=== PATIENT | female | born 1980 | race Caucasian/White ===

== ENCOUNTER 2018-02-25 11:32 | Emergency (ER) | END 2018-02-25 15:46 | disposition home or self-care (01) ==

== ENCOUNTER 2018-07-01 07:19 | Emergency (ER) | payer OTHER ==
[~2018-07-01] VITALS: Ht 167.6 cm; Wt 76.0 kg
[~2018-07-01 07:19] MED LIST: MECL12.574 PO; METO10TA92 PO
[2018-07-01 07:21] VITALS: Ht 167.6 cm; Wt 76.0 kg
[2018-07-01] MEDS ORDERED: ONDANSETRON 4 MG INJ IV STA (08:38)
[2018-07-01] MEDS ORDERED: morphine 2 MG INJ IV STA (08:38)
[2018-07-01] MEDS ORDERED: IBUP-1542 PO (10:22)
[2018-07-01] MEDS ORDERED: CEPH-443 PO (10:22)
--- NOTE | 2018-07-01 10:26 | ERD ---
ER Documentation Chief Complaint Chief Complaint Complains of abdominal pain that started yesterday HPI 38-year-old female presents with a 2-3-day history of lower abdominal pain which is constant. She has decreased appetite but denies significant nausea no vomiting. Denies fevers, urinary complaints. She denies . Patient denies any previous abdominal conditions, surgeries. She denies any upper abdominal pain. Patient denies any new sexual partners or concern for STDs. ROS All systems reviewed and are negative except as per history of present illness. Medications Home Meds Active Scripts Ibuprofen* (Motrin*) 600 Mg Tab, 600 MG PO Q6, #15 TAB Prov:LAURA CABAN MD 07/01/18 Cephalexin* (Keflex*) 500 Mg Capsule, 500 MG PO QID for 5 Days, CAP Prov:LAURA CABAN MD 07/01/18 Metoclopramide* (Reglan*) 10 Mg Tablet, 10 MG PO BID PRN for NAUSEA AND/OR VOMITING, #10 TAB Prov:CHILO SYED MD 02/25/18 Meclizine Hcl* (Antivert*) 12.5 Mg Tab, 12.5 MG PO Q6H PRN for DIZZINESS, #20 TAB Prov:CHILO SYED MD 02/25/18 Allergies Allergies: Coded Allergies: No Known Allergy (Verified , 07/12/12) PMhx/Soc History of Surgery: No Anesthesia Reaction: No Hx Neurological Disorder: No Hx Respiratory Disorders: No Hx Cardiac Disorders: No Hx Psychiatric Problems: No Hx Miscellaneous Medical Probl: Yes (LIVER INFLAMMATION ) Hx Alcohol Use: No Hx Substance Use: No Hx Tobacco Use: No FmHx Family History: No diabetes, No coronary disease, No other Physical Exam Vitals Vital Signs Date Temp Pulse Resp B/P (MAP) Pulse Ox O2 O2 Flow FiO2 Time Delivery Rate 07/01/18 98.9 64 20 111/54 99 07:21 (73) Physical Exam Const: No acute distress Head: Atraumatic Eyes: Normal Conjunctiva ENT: Normal External Ears, Nose and Mouth. Neck: Full range of motion. No meningismus. Resp: Clear to auscultation bilaterally Cardio: Regular rate and rhythm, no murmurs Abd: Soft, mild tenderness primary in the lower abdomen without focal tenderness at McBurney's point. No Kimble sign. No rebound. There is diffuse mildly on the right and left suprapubic area.. Non distended. Normal bowel sounds Skin: No petechiae or rashes Back: No midline or flank tenderness Ext: No cyanosis, or edema Neur: Awake and alert Psych: Normal Mood and Affect Result Diagram: 07/01/18 0856 07/01/18 0856 Results 24 hrs Laboratory Tests Test 07/01/18 08:56 07/01/18 09:47 White Blood Count 10.7 10^3/ul Red Blood Count 4.73 10^6/ul Hemoglobin 14.2 g/dl Hematocrit 41.6 % Mean Corpuscular Volume 87.9 fl Mean Corpuscular Hemoglobin 30.0 pg Mean Corpuscular Hemoglobin Concent 34.1 g/dl Red Cell Distribution Width 12.5 % Platelet Count 280 10^3/UL Mean Platelet Volume 11.1 fl Immature Granulocytes % 0.900 % Neutrophils % 69.3 % Lymphocytes % 21.3 % Monocytes % 4.4 % Eosinophils % 3.6 % Basophils % 0.5 % Nucleated Red Blood Cells % 0.0 /100WBC Immature Granulocytes # 0.100 10^3/ul Neutrophils # 7.4 10^3/ul Lymphocytes # 2.3 10^3/ul Monocytes # 0.5 10^3/ul Eosinophils # 0.4 10^3/ul Basophils # 0.1 10^3/ul Nucleated Red Blood Cells # 0.0 10^3/ul Urine Color YELLOW Urine Clarity SLIGHTLY CLOUDY Urine pH 8.0 Urine Specific [place] 1.011 Urine Ketones NEGATIVE mg/dL Urine Nitrite NEGATIVE mg/dL Urine Bilirubin NEGATIVE mg/dL Urine Urobilinogen NEGATIVE mg/dL Urine Leukocyte Esterase TRACE Didier/ul Urine Microscopic RBC 0 /HPF Urine Microscopic WBC 6 /HPF Urine Squamous Epithelial Cells FEW /HPF Urine Amorphous Crystals FEW /HPF Urine Bacteria FEW /HPF Urine Hemoglobin NEGATIVE mg/dL Urine Glucose NEGATIVE mg/dL Urine Total Protein NEGATIVE mg/dl Sodium Level 140 mmol/L Potassium Level 4.3 mmol/L Chloride Level 103 mmol/L Carbon Dioxide Level 30 mmol/L Anion Gap 7 Blood Urea Nitrogen 12 mg/dl Creatinine 0.61 mg/dl Est Glomerular Filtrat Rate mL/min > 60 mL/min Glucose Level 103 mg/dl Calcium Level 9.4 mg/dl Total Bilirubin 0.4 mg/dl Direct Bilirubin 0.00 mg/dl Indirect Bilirubin 0.4 mg/dl Aspartate Amino Transf (AST/SGOT) 28 IU/L Alanine Aminotransferase (ALT/SGPT) 32 IU/L Alkaline Phosphatase 53 IU/L Total Protein 7.1 g/dl Albumin 4.1 g/dl Globulin 3.00 g/dl Albumin/Globulin Ratio 1.36 Lipase 191 U/L POC Beta HCG, Qualitative NEGATIVE Current Medications Medications Dose Sig/Josiah Start Time Status Last (Trade) Ordered Route PRN Stop Time Admin Dose Reason Admin Morphine 2 mg ONCE STAT 07/01/18 DC 07/01/18 Sulfate IV 08:38 09:00 (morphine) 07/01/18 08:40 Ondansetron 4 mg ONCE STAT 07/01/18 DC 07/01/18 HCl (Zofran IV 08:38 09:00 Inj) 07/01/18 08:40 Cephalexin 500 mg ONCE ONCE 07/01/18 (Keflex) PO 10:30 07/01/18 10:31 Ibuprofen 600 mg ONCE ONCE 07/01/18 (Motrin) PO 10:30 07/01/18 10:31 Procedures/MDM Patient presents with lower abdominal pain of uncertain etiology. Urine shows few white blood cells and trace leukocyte esterase. CBC, CMP, lipase normal. Concerns for diverticulitis, additional emergent cause of abdominal pain. CT abdomen pelvis shows hepatic steatosis otherwise no acute findings. Patient was given Keflex and ibuprofen. Urine sent for gonorrhea chlamydia. Patient will be treated with Keflex, ibuprofen, primary care follow-up and return precautions for findings of UTI. There is no signs of additional emergent causes of abdominal pain currently. Should return for worsening pain, fevers, vomiting, new worsening symptoms with primary care doctor this week. The patient was stable with no new complaints during the ER course. Clinically, there is no current evidence to suggest meningitis, sepsis, acute abdomen, pneumonia, tubo- ovarian abscess, stroke, acute coronary syndrome, pulmonary embolism, aortic dissection or any other emergent condition appearing to require further evaluation or hospitalization. Patient counseled regarding my diagnostic impression and care plan. Prior to discharge all questions answered. Pt agrees with treatment plan and understands strict return precautions. Pt is instructed to follow up with primary care provider within 24-48 hours. Precautionary instructions provided including instructions to return to the ER if not improving or for any worsening or changing symptoms or concerns. Departure Diagnosis: Primary Impression: UTI (urinary tract infection) Urinary tract infection type: acute cystitis Hematuria presence: without hematuria Qualified Codes: N30.00 - Acute cystitis without hematuria Additional Impression: Abdominal pain Abdominal location: lower abdomen, unspecified Qualified Codes: R10.30 - Lower abdominal pain, unspecified Condition: Stable Patient Instructions: Abdominal Pain, Understanding Urinary Tract Infections (UTIs) Additional Instructions: todo examines normal para enfermas peligrosa. solo hay infeccion en [place]. Cheque otro vez con [place] doctor primario en el proximo jones or regresa para mas o nueva simptomas. LAURA CABAN MD Jul 01, 2018 10:26
[2018-07-01] MEDS ORDERED: IBUPROFEN 600 MG TAB PO ONE (10:30)
[2018-07-01] MEDS ORDERED: CEPHALEXIN 500 MG CAP PO ONE (10:30)
[2018-07-01 10:55] VITALS: BP 112/62; PULSE 75; RESP 18
== END 2018-07-01 10:56 | disposition home or self-care (01) ==
LOC: FTE 07:19
DX: N30.00 Acute cystitis without hematuria (principal)
CPT/HCPCS: 36415; 74176; 80053; 81001; 81025; 83690; 85025; 87591; 96374; 96375; J2270; J2405; Z7502; Z7610